=== PATIENT | male | born 1970 | race Caucasian/White ===

== ENCOUNTER 2023-01-21 14:15 | Emergency (ER) | payer OTHER, SELFPAY ==
[2023-01-21 14:22] VITALS: BP 136/86; PULSE 89; RESP 20; TEMP 36.7; O2SAT 95; BMI 32.8
--- NOTE | 2023-01-21 14:28 | XR_ITS ---
The [address] [address] Patient Name: ATA SCHAFFER MRN: [id number] date: 1970 Sex: M Assigned Patient Location: ED.MAIN Current Patient Location: ER Accession/Order Number: [id number] Exam Date: 01/21/2023 14:37 Report Date: 01/21/2023 15:00 At the request of: VANESSA RUSS Procedure: XR hand RT min 3V PROCEDURE: XR hand RT min 3V COMPARISON: None. HISTORY: trauma FINDINGS: BONES:No fracture, acute abnormality, or significant arthropathy. SOFT TISSUES:Moderate lateral soft tissue swelling EFFUSION:None visible. OTHER: Negative. XR/XR hand RT min 3V IMPRESSION: Lateral hand soft tissue swelling, no acute fracture Electronically authenticated by: BRIAN ARCHER Date: 01/21/2023 15:00
--- NOTE | 2023-01-21 15:21 | ED_ITS ---
HPI - Extremity Injury (Upper) General Chief Complaint: Extremity Injury, Upper Stated Complaint: UPPER INJURY Time Seen by Provider: 01/21/23 14:20 Source: patient Mode of arrival: walk-in Limitations: no limitations History of Present Illness HPI narrative: this patient was at work today for the [employer] and sustained a crush injury to his right hand. He does not have any other injury today. He has not had previous fracture. He is right-handed dominant. He's not had a tetanus shot for quite a few years. He has not lost feeling but there is a lot of swelling to the dorsum of his right hand. It is quite a heavy piece of equipment that injured him. Related Data Allergies Allergy/AdvReac Type Severity Reaction Status Date / Time No Known Drug Allergies Allergy Verified 01/21/23 14:22 [facility] Social History Smoking status: Never smoker Exam Narrative Exam Narrative: patient awake alert excellent historian cognition and mentation normal. No smell of alcohol byproducts. Problem focused examination Right hand does have some soft tissue swelling but no obvious bony deformity. There is abrasions and partial-thickness laceration to the dorsum of his hand near the mid shaft of the 4th and 5th metatarsal dorsal surface. He does not have a rotational deformity. He has normal sensation distally. There is no active bleeding. He has no discomfort in his wrist. Constitutional Vital Signs, click to edit/add: Last Vital Signs Temp 98.1 F 01/21/23 14:22 Pulse 89 01/21/23 14:22 Resp 01/21/23 14:22 BP 136/86 H 01/21/23 14:22 Pulse Ox 95 01/21/23 14:22 Course Vital Signs Vital signs: Vital Signs Temperature 98.1 F 01/21/23 14:22 Pulse Rate 89 01/21/23 14:22 Respiratory Rate 20 01/21/23 14:22 Blood Pressure 136/86 H 01/21/23 14:22 Pulse Oximetry 95 01/21/23 14:22 Temperature 98.1 F 01/21/23 14:22 Pulse Rate 89 01/21/23 14:22 Respiratory Rate 20 01/21/23 14:22 Blood Pressure 136/86 H 01/21/23 14:22 Pulse Oximetry 95 01/21/23 14:22 MDM - Extremity Injury (Upper) MDM Narrative Medical decision making narrative: x-rays were done and reviewed by the radiologist for no acute fracture. I did gently cleanse this wound with some pHisoHex solution as there is a small amount of dirt and debris. We trimmed away a small amount into prided partial thickness skin. Dressings will be applied. He has a good amount of swelling so we want him to elevate this and keep ice on this intermittently for the next 24-48 hours. Tetanus was updated. Dressings were applied. He is not permitted to return to work tomorrow so she can keep this elevated and iced appropriately Discharge Plan Discharge Chief Complaint: Extremity Injury, Upper Clinical Impression: Crush injury of hand Patient Disposition: Home, Self-Care Time of Disposition Decision: 15:24 Instructions: Crush Injury (ED) Additional Instructions: ice, elevate forty-eight hours/[id number] analgesics for pain. Do not use the hand for forty-eight seventy-two hours Stand Alone Forms: Portal Instructions Referrals: KONG LAWLER [Primary Care Provider] - 1 week
[2023-01-21] MEDS: ADACEL DIPH,PERTUSS(ACELL),TET VAC/PF 0.5 ML ADULT SYRINGE IM (15:47)
== END 2023-01-21 16:06 | disposition home or self-care (01) ==
PROVIDERS: Emergency Provider Emergency Medicine Emergency Medical Services; PCP Family Medicine
DX: S67.21XA Crushing injury of right hand, initial encounter (principal); X58.XXXA Exposure to other specified factors, initial encounter; S61.411A Laceration without foreign body of right hand, initial encounter; Z23 Encounter for immunization
CPT/HCPCS: 73130; 90471; 90715; 99283

== ENCOUNTER 2023-02-03 17:03 | Emergency (ER) | payer OTHER, SELFPAY ==
[2023-02-03 17:09] VITALS: BP 145/96; PULSE 98
[2023-02-03 17:10] VITALS: PULSE 97; RESP 20; O2SAT 100
[2023-02-03 17:15] VITALS: BP 145/96; PULSE 88; RESP 16; TEMP 36.8; O2SAT 98; BMI 32.8
[2023-02-03 17:20] VITALS: PULSE 92; RESP 18; O2SAT 98
--- NOTE | 2023-02-03 17:29 | XR_ITS ---
The [address] [address] Patient Name: ATA SCHAFFER MRN: [id number] date: 1970 Sex: M Assigned Patient Location: ER Current Patient Location: ED.MAIN Accession/Order Number: [id number] Exam Date: 02/03/2023 17:45 Report Date: 02/03/2023 18:15 At the request of: FAB BUNN Procedure: XR chest 2V EXAM: XR chest 2V HISTORY: cp COMPARISON: None. TECHNIQUE: PA and lateral views FINDINGS: The cardiovascular silhouette is normal. Lung berrios are well-expanded and clear. Pleural spaces are clear. The bony structures are unremarkable. XR/XR chest 2V IMPRESSION: No evidence for acute cardiopulmonary disease. Electronically authenticated by: Viki EL Date: 02/03/2023 18:15
[2023-02-03 17:30] VITALS: PULSE 88; RESP 26; O2SAT 95
--- NOTE | 2023-02-03 17:30 | ECG_ITS ---
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
--- NOTE | 2023-02-03 17:31 | ED_ITS ---
HPI - General Adult General Chief complaint: Chest Pain Stated complaint: CHEST PAIN Time Seen by Provider: 02/03/23 17:08 Source: patient and family Mode of arrival: walk-in Limitations: no limitations History of Present Illness HPI narrative: Patient is a 52-year-old male who is presenting to the Emergency Room with chief complaint of a warm sensation across his chest that occurred a home and he sitting on the couch with his . Patient works in the city of [place]. Patient does a lot of hard work instructions or the day. Patient was drinking a lot of water today. Patient did not have a lot of caffeine, fatty or greasy food. Patient does not have a history of acid reflux or heartburn. Patient has no cardiac history. Patient takes medication for thyroid and blood pressure. Patient was a patient of Dr. puente. Dr. Puente stop practicing January 22 in the local area and is moving his practice enjoying a practice in [place]. Patient no longer has the sensation. is at bedside. Patient did have a stress test and echocardiogram many years ago. Patient has no recent traveling. No significant stress or anxiety. Patient does not suffer from stress or anxiety or panic attacks. No other acute complaints this time. Patient does take testosterone. Patient is not short of breath, diaphoretic, had no nausea vomiting. Patient has no history of acid reflux or ulcers, no acute complaints. Patient's heart score is 2, 1 for age, 1 for risk of blood pressure . All systems are negative except as noted/marked. All systems reviewed and otherwise negative. . Nurses note and vital signs reviewed and patient is not hypoxic. General: The patient appears well and in no apparent distress. Patient is resting comfortably on cart. Patient is not toxic, lethargic, or listless Skin: Warm, dry, no pallor noted. There is no rash noted. No petechiae, purpura. Head: Normocephalic, atraumatic Eye: Normal conjunctiva, no drainage, EOMI. PERRL Ears, Nose, Mouth, and Throat: oral mucosa is moist. Nares patent. Mouth without vesicles. Cardiovascular: Regular Rate and Rhythm, no murmur, gallop, rub Respiratory: Patient is in no distress, no accessory muscle use, lungs are clear to auscultation, no wheezing, rales or rhonchi Back: non-tender, no CVA tenderness bilaterally to percussion. No CT LS midline pain GI: soft, no tenderness to palpation, no masses appreciated. No rebound, guarding, or rigidity noted. No flank pain bilateral, No distention. No reproducible tenderness to palpation to the midepigastric area. Musculoskeletal: Patient has full range of motion of all of the extremities, no motor, sensory, or focal neurological deficits Neurological: A&O x3, normal speech Psychiatric: Cooperative Related Data Home Medications Medication Instructions Recorded Confirmed amlodipine 5 mg tablet 5 mg PO DAILY 02/03/23 02/03/23 diclofenac sodium 75 mg 75 mg PO Q12H 02/03/23 02/03/23 tablet,delayed release hydrochlorothiazide 25 mg tablet 25 mg PO DAILY 02/03/23 02/03/23 levothyroxine 75 mcg tablet 75 mcg PO DAILY 02/03/23 02/03/23 liothyronine 25 mcg tablet 25 mcg PO DAILY 02/03/23 02/03/23 losartan 100 mg tablet 100 mg PO DAILY 02/03/23 02/03/23 Allergies Allergy/AdvReac Type Severity Reaction Status Date / Time No Known Drug Allergies Allergy Verified 01/28/23 10:25 [facility] Social History (System 01/28/23 @ 10:25 by Lisa Shepherd) Smoking status: Never smoker Exam Constitutional Vital Signs, click to edit/add: Last Vital Signs Temp 98.2 F 02/03/23 17:15 Pulse 93 H 02/03/23 17:40 Resp 21 02/03/23 17:40 BP 145/96 H 02/03/23 17:15 Pulse Ox 98 02/03/23 17:40 O2 Del Method Room Air 02/03/23 17:15 Course Vital Signs Vital signs: Vital Signs Pulse Rate 98 H 02/03/23 17:09 Blood Pressure 145/96 H 02/03/23 17:09 Temperature 98.2 F 02/03/23 17:15 Pulse Rate 93 H 02/03/23 17:40 Respiratory Rate 21 02/03/23 17:40 Blood Pressure 145/96 H 02/03/23 17:15 Pulse Oximetry 98 02/03/23 17:40 Oxygen Delivery Method Room Air 02/03/23 17:15 Medical Decision Making [facility] Narrative Medical decision making narrative: Patient EKG, chest x-ray show no acute findings. Patient will have a 2nd troponin drawn at 7:30 PM. Final disposition will be performed by Dr. Martinez. Patient's heart scores 2. Patient has not had symptoms in the Emergency Room. Patient needs to reestablish new physician as well, physician this has been given to him. Chest x-ray shows no acute cardiopulmonary disease, see the official report. Initial troponin was negative. Paatient has slight elevation of BUN/creatinine. Patient did not drink enough water today at work, patient usually drinks 2 - 64 ounces of water. Patient is been told before that is being creatinine a bit elevated as well. Education on elevation of BUN/creatinine secondary to dehydration, age, blood pressure was discussed at bedside with patient and . [address] Martinez Lab Data Lab results reviewed: Yes I reviewed the patient's lab results Labs: Lab Results 02/03/23 Range/Units 17:25 WBC 7.5 (4.0-11.0) 10^3/uL RBC 5.15 (4.70-6.10) 10^6/uL Hgb 15.5 (14.0-18.0) g/dL Hct 45.1 (42.0-54.0) % MCV 87.6 (80.0-94.0) fL MCH 30.1 (25.9-34.0) pg MCHC 34.4 (29.9-35.2) g/dL RDW 12.6 (11.0-15.0) % Plt Count 284 (150-450) 10^3/uL MPV 9.7 (9.5-13.5) fL Neut % (Auto) 63.6 (43.0-75.0) % Lymph % (Auto) 24.5 (20.5-60.0) % [place] % (Auto) 8.4 (1.7-12.0) % Eos % (Auto) 2.4 (0.9-7.0) % Baso % (Auto) 0.8 (0.2-2.0) % Neut # (Auto) 4.8 (1.4-6.5) 10^3/uL Lymph # (Auto) 1.9 (1.2-3.8) 10^3/uL [place] # (Auto) 0.6 (0.3-0.8) 10^3/uL Eos # (Auto) 0.2 (0.0-0.7) 10^3/uL Baso # (Auto) 0.1 (0.0-0.1) 10^3/uL Abs Immat Gran (auto) 0.02 (0.00-0.03) 10^3/uL Imm/Tot Granulo (auto) 0.3 (0.0-0.5) % Sodium 135 L (136-145) mmol/L Potassium 3.6 (3.5-5.1) mmol/L Chloride 99 (98-107) mmol/L Carbon Dioxide 26.4 (21.0-32.0) mmol/L Anion Gap 13.2 BUN 23.0 H (7.0-18.0) mg/dL Creatinine 1.38 H (0.70-1.30) mg/dL Est GFR ( Amer) >60 (>=60) Est GFR (Non-Af Amer) 54 L (>=60) BUN/Creatinine Ratio 16.7 Glucose 170 H (74-106) mg/dL Calcium 8.8 (8.5-10.1) mg/dL Total Bilirubin 0.9 (0.2-1.0) mg/dL AST 31 (15-37) U/L ALT 65 H (16-63) U/L Alkaline Phosphatase 72 (46-116) U/L Troponin I High Sens 6.8 (4.0-76.1) pg/mL Total Protein 7.9 (6.4-8.2) g/dL Albumin 4.4 (3.4-5.0) g/dL Globulin 3.5 g/dL Albumin/Globulin Ratio 1.3 Lipase 97.0 (73.0-393.0) U/L ECG Data Attestation: I personally reviewed and interpreted this ECG as follows: Interpretation: EKG interpretation. Normal sinus rhythm at 91 beats a minute. Normal axis d eviation. No acute ST elevation, no acute ectopy. QTC of 382. Artifact noted. Discharge Plan Discharge Chief Complaint: Chest Pain Clinical Impression: Chest discomfort Patient Disposition: Home, Self-Care Condition: Good Prescriptions / Home Meds: No Action hydrochlorothiazide 25 mg tablet 25 mg PO DAILY liothyronine 25 mcg tablet 25 mcg PO DAILY amlodipine 5 mg tablet 5 mg PO DAILY diclofenac sodium 75 mg tablet,delayed release (DR/EC) 75 mg PO Q12H levothyroxine 75 mcg tablet 75 mcg PO DAILY losartan 100 mg tablet 100 mg PO DAILY Instructions: Chest Pain (ED), Noncardiac Chest Pain (ED) Additional Instructions: If symptoms continue, reestablish with a new PCP physician. Local [place] cardiology group is also been referred to as well. Stand Alone Forms: Portal Instructions Referrals: DANIEL ROWLEY [Physician] - 1 week Physician,Non-Staff, MD [Primary Care Provider] - 1 week
[2023-02-03 17:40] VITALS: PULSE 93; RESP 21; O2SAT 98
[2023-02-03 17:47] LABS: Basophils Absolute Auto 0.1 10^3/uL (0.0-0.1); Basophils Percent Auto 0.8 % (0.2-2.0); Eosinophils Absolute Auto 0.2 10^3/uL (0.0-0.7); Eosinophils Percent Auto 2.4 % (0.9-7.0); Hematocrit 45.1 % (42.0-54.0); Hemoglobin 15.5 g/dL (14.0-18.0); Immature Granulocytes Abs Auto 0.02 10^3/uL (0.00-0.03); Immature Granulocytes Pct Auto 0.3 % (0.0-0.5); Lymphocytes Absolute Auto 1.9 10^3/uL (1.2-3.8); Lymphocytes Percent Auto 24.5 % (20.5-60.0); Mean Corpuscular HGB Conc 34.4 g/dL (29.9-35.2); Mean Corpuscular Hemoglobin 30.1 pg (25.9-34.0); Mean Corpuscular Volume 87.6 fL (80.0-94.0); Mean Platelet Volume 9.7 fL (9.5-13.5); Monocytes Absolute Auto 0.6 10^3/uL (0.3-0.8); Monocytes Percent Auto 8.4 % (1.7-12.0); Neutrophils Absolute Auto 4.8 10^3/uL (1.4-6.5); Neutrophils Percent Auto 63.6 % (43.0-75.0); Platelet Count 284 10^3/uL (150-450); Red Blood Count 5.15 10^6/uL (4.70-6.10); Red Cell Distribution Width 12.6 % (11.0-15.0); White Blood Count 7.5 10^3/uL (4.0-11.0)
[2023-02-03 17:58] LABS: Alanine Aminotransferase 65 U/L (16-63); Albumin Globulin Ratio 1.3; Albumin Level 4.4 g/dL (3.4-5.0); Alkaline Phosphatase 72 U/L (46-116); Anion Gap 13.2; Aspartate Amino Transferase 31 U/L (15-37); BUN Creatinine Ratio 16.7; Bilirubin Total 0.9 mg/dL (0.2-1.0); Calcium 8.8 mg/dL (8.5-10.1); Carbon Dioxide 26.4 mmol/L (21.0-32.0); Chloride 99 mmol/L (98-107); Estimated GFR (African America >60 (>=60); Estimated GFR (Non-African Ame 54 (>=60); Globulin 3.5 g/dL; Glucose 170 mg/dL (74-106); Potassium 3.6 mmol/L (3.5-5.1); Sodium 135 mmol/L (136-145); Total Protein 7.9 g/dL (6.4-8.2); Troponin I High Sensitivity 6.8 pg/mL (4.0-76.1)
[2023-02-03] MEDS: 0.9 % SODIUM CHLORIDE 1,000 ML 1000 ML IV (19:44)
[2023-02-03 19:58] LABS: Troponin I High Sensitivity 6.7 pg/mL (4.0-76.1)
--- NOTE | 2023-02-03 20:25 | ED.CHESTPAI1 ---
HPI - Chest Pain General Chief Complaint: Chest Pain Stated Complaint: CHEST PAIN Time Seen by Provider: 02/03/23 17:08 Source: patient and family Mode of arrival: walk-in Limitations: no limitations History of Present Illness HPI narrative: This 52-year-old male was signed out to me at shift change pending repeat troponin testing. He presents for evaluation of burning in his chest and elevated blood pressure. The patient is taking several blood pressure medications. He is not complaining of any chest pain at this time. Routine labs are reviewed. He did have a mild elevation in his creatinine. He has a normal troponin. Repeat troponin testing is also normal. He was seen and evaluated. He feels good stating that he never has blood pressure this low. It is in the 120s over 60s. He is on several blood pressure medications which he intends to continue taking. He is looking for new family physician because his PCP recently retired. He denies any abdominal pain or back pain. He was wondering if he could've possibly had a panic attack but states he does not have a history of anxiety or panic attacks. He feels comfortable being discharged at this time. He will be provided names of local physicians that are taking new patients. Related Data Home Medications Medication Instructions Recorded Confirmed amlodipine 5 mg tablet 5 mg PO DAILY 02/03/23 02/03/23 diclofenac sodium 75 mg 75 mg PO Q12H 02/03/23 02/03/23 tablet,delayed release hydrochlorothiazide 25 mg tablet 25 mg PO DAILY 02/03/23 02/03/23 levothyroxine 75 mcg tablet 75 mcg PO DAILY 02/03/23 02/03/23 liothyronine 25 mcg tablet 25 mcg PO DAILY 02/03/23 02/03/23 losartan 100 mg tablet 100 mg PO DAILY 02/03/23 02/03/23 Allergies Allergy/AdvReac Type Severity Reaction Status Date / Time No Known Drug Allergies Allergy Verified 01/28/23 10:25 [facility] Social History (System 01/28/23 @ 10:25 by Lisa Shepherd) Smoking status: Never smoker Exam Constitutional Vital Signs, click to edit/add: Last Vital Signs Temp 98.2 F 02/03/23 17:15 Pulse 93 H 02/03/23 17:40 Resp 21 02/03/23 17:40 BP 145/96 H 02/03/23 17:15 Pulse Ox 98 02/03/23 17:40 O2 Del Method Room Air 02/03/23 17:15 Course Vital Signs Vital signs: Vital Signs Pulse Rate 98 H 02/03/23 17:09 Blood Pressure 145/96 H 02/03/23 17:09 Temperature 98.2 F 02/03/23 17:15 Pulse Rate 93 H 02/03/23 17:40 Respiratory Rate 21 02/03/23 17:40 Blood Pressure 145/96 H 02/03/23 17:15 Pulse Oximetry 98 02/03/23 17:40 Oxygen Delivery Method Room Air 02/03/23 17:15 MDM - Chest Pain MDM Narrative Medical decision making narrative: See HPI Lab Data Labs: Lab Results 02/03/23 02/03/23 Range/Units 17:25 19:26 WBC 7.5 (4.0-11.0) 10^3/uL RBC 5.15 (4.70-6.10) 10^6/uL Hgb 15.5 (14.0-18.0) g/dL Hct 45.1 (42.0-54.0) % MCV 87.6 (80.0-94.0) fL MCH 30.1 (25.9-34.0) pg MCHC 34.4 (29.9-35.2) g/dL RDW 12.6 (11.0-15.0) % Plt Count 284 (150-450) 10^3/uL MPV 9.7 (9.5-13.5) fL Neut % (Auto) 63.6 (43.0-75.0) % Lymph % (Auto) 24.5 (20.5-60.0) % [place] % (Auto) 8.4 (1.7-12.0) % Eos % (Auto) 2.4 (0.9-7.0) % Baso % (Auto) 0.8 (0.2-2.0) % Neut # (Auto) 4.8 (1.4-6.5) 10^3/uL Lymph # (Auto) 1.9 (1.2-3.8) 10^3/uL [place] # (Auto) 0.6 (0.3-0.8) 10^3/uL Eos # (Auto) 0.2 (0.0-0.7) 10^3/uL Baso # (Auto) 0.1 (0.0-0.1) 10^3/uL Abs Immat Gran (auto) 0.02 (0.00-0.03) 10^3/uL Imm/Tot Granulo (auto) 0.3 (0.0-0.5) % Sodium 135 L (136-145) mmol/L Potassium 3.6 (3.5-5.1) mmol/L Chloride 99 (98-107) mmol/L Carbon Dioxide 26.4 (21.0-32.0) mmol/L Anion Gap 13.2 BUN 23.0 H (7.0-18.0) mg/dL Creatinine 1.38 H (0.70-1.30) mg/dL Est GFR ( Amer) >60 (>=60) Est GFR (Non-Af Amer) 54 L (>=60) BUN/Creatinine Ratio 16.7 Glucose 170 H (74-106) mg/dL Calcium 8.8 (8.5-10.1) mg/dL Total Bilirubin 0.9 (0.2-1.0) mg/dL AST 31 (15-37) U/L ALT 65 H (16-63) U/L Alkaline Phosphatase 72 (46-116) U/L Troponin I High Sens 6.8 6.7 (4.0-76.1) pg/mL Total Protein 7.9 (6.4-8.2) g/dL Albumin 4.4 (3.4-5.0) g/dL Globulin 3.5 g/dL Albumin/Globulin Ratio 1.3 Lipase 97.0 (73.0-393.0) U/L Heart Score History: Slightly/Non-Suspicious ECG: Normal Age: >45-<65 years Risk Factors: 1 or 2 Risk Factors Troponin: <Normal Limit Total Heart Score Recommendations & Risks:: 2 Discharge Plan Discharge Chief Complaint: Chest Pain Clinical Impression: Chest discomfort, Elevated blood pressure reading Patient Disposition: Home, Self-Care Time of Disposition Decision: 20:27 Condition: Good Prescriptions / Home Meds: No Action hydrochlorothiazide 25 mg tablet 25 mg PO DAILY liothyronine 25 mcg tablet 25 mcg PO DAILY amlodipine 5 mg tablet 5 mg PO DAILY diclofenac sodium 75 mg tablet,delayed release (DR/EC) 75 mg PO Q12H levothyroxine 75 mcg tablet 75 mcg PO DAILY losartan 100 mg tablet 100 mg PO DAILY Instructions: Chest Pain (ED), Hypertension (ED), Noncardiac Chest Pain (ED) Additional Instructions: If symptoms continue, reestablish with a new PCP physician. Local [place] cardiology group is also been referred to as well. Stand Alone Forms: Portal Instructions Referrals: DANIEL ROWLEY [Physician] - 1 week Physician,Non-Staff, MD [Primary Care Provider] - 1 week
== END 2023-02-03 20:38 | disposition home or self-care (01) ==
PROVIDERS: Emergency Medicine; Emergency Provider Emergency Medicine
DX: R07.89 Other chest pain (principal); I10 Essential (primary) hypertension; Z79.899 Other long term (current) drug therapy; Z79.890 Hormone replacement therapy
CPT/HCPCS: 36415; 71046; 80053; 83690; 84484; 85025; 93005; 99285